=== PATIENT | female | born 1940 ===

== ENCOUNTER 2020-03-23 16:25 | Inpatient (IN) ==
[2020-03-23] MEDS ORDERED: HYDROmorphone 0.5 MG/0.5 ML SYRINGE IV ONE (17:42)
[2020-03-23 18:55] LABS: ABS Eosinophils 0.1 10^3/ul (0-0.6); ABS Lymphocytes 1.6 10^3/ul (1.0-4.8); ABS Monocytes 0.6 10^3/ul (0-0.8); Eosinophil % 0.8 %; Hematocrit 38 % (35-47); Hemoglobin 12.9 g/dL (12.0-16.0); Lymphocyte % 21.9 %; Mean Corpuscular HGB Conc 34 g/dL (31-36); Mean Corpuscular Hemoglobin 31 pg (27-31); Mean Corpuscular Volume 91 fL (80-97); Mean Platelet Volume 6.7 fL (7.4-10.4); Platelet Count 248 10^3/uL (150-450); Red Cell Distribution Width 16 % (10-15); White Blood Count 7.3 10^3/uL (3.5-10.8)
[2020-03-23 19:29] LABS: ALT 28 U/L (7-52); AST 23 U/L (13-39); Albumin 4.1 g/dL (3.2-5.2); Albumin/Globulin Ratio 1.3 (1-3); Alkaline Phosphatase 54 U/L (34-104); Anion Gap 9 mmol/L (2-11); BUN/Creatinine Ratio 18.3 (8-20); Blood Urea Nitrogen 22 mg/dL (6-24); C Reactive Protein < 1.00 mg/L (<8.01); CO2 Carbon Dioxide 24 mmol/L (22-32); Calcium 9.3 mg/dL (8.6-10.3); Chloride 98 mmol/L (101-111); EGFR African American 52.4 (>60); EGFR Non-African American 43.3 (>60); Globulin 3.1 g/dL (2-4); Glucose 104 mg/dL (70-100); Potassium 4.4 mmol/L (3.5-5.0); Sodium 131 mmol/L (135-145); Total Protein 7.2 g/dL (6.4-8.9)
[2020-03-23] MEDS ORDERED: Ondansetron 4 mg VIAL 2 MG/ML 2 ml VIAL IV PRN (21:38)
[2020-03-24] MEDS: oxyCODONE/Acetamin 5/325 mg TAB PO PRN ×2 (00:26→20:36)
[2020-03-24] MEDS: HYDROmorphone 0.5 MG/0.5 ML SYRINGE IV SLOW PU PRN ×3 (03:34→18:00)
[2020-03-24] MEDS ORDERED: Dextrose 50% Syringe 50 ml 25 GM/50 ML SYRINGE IV PUSH PRN (03:47)
[2020-03-24 10:02] LABS: Calcium 9.4 mg/dL (8.6-10.3); EGFR African American 56.8 (>60); EGFR Non-African American 46.9 (>60); Potassium 4.7 mmol/L (3.5-5.0)
[2020-03-24 10:37] LABS: Activated Partial Thrombo Time 31.4 seconds (26.0-38.0); INR 1.23 (0.82-1.09)
[2020-03-25] MEDS ORDERED: Ondansetron 4 mg VIAL 2 MG/ML 2 ml VIAL IV SCH
[2020-03-25] MEDS ORDERED: Dexamethasone IV 4 MG/ML VIAL 1 ml VIAL IV SLOW PU SCH
[2020-03-25] MEDS ORDERED: Lidocaine 2% PF 5 ML VIAL IV SCH
[2020-03-25] MEDS ORDERED: Acetaminophen IV 1 GM/100ML 100 ML IVPB SCH
[2020-03-25] MEDS ORDERED: Etomidate 20 mg/10 ml 2 MG/ML 10 ml VIAL IV SCH
[2020-03-25] MEDS ORDERED: EPHEDrine (Pressors) 50 MG/ML VIAL IV PUSH SCH
[2020-03-25] MEDS ORDERED: Propofol 10 MG/ML 50 ML BTL IV SCH
[2020-03-25] MEDS ORDERED: fentaNYL 250 mcg/5 ml 50 MCG/ML 5 ml VIAL (250 MCG) IV SCH
[2020-03-25] MEDS ORDERED: Rocuronium 50 mg VIAL 10 mg/ml 5 ml VIAL (50 mg) IV SCH
[2020-03-25] MEDS ORDERED: ceFAZolin 2 GM PREMIX 2 GM/50 ML BAG IVPB SCH
[2020-03-25] MEDS ORDERED: Remifentanil 2 MG VIAL IV SCH
[2020-03-25] MEDS ORDERED: Ketamine HCL 50 mg/ml 10 ml VIAL (500 MG) IV SCH
[2020-03-25] MEDS: HYDROmorphone 0.5 MG/0.5 ML SYRINGE IV SLOW PU PRN ×3 (01:50→11:21)
[2020-03-25] MEDS ORDERED: ceFAZolin 2 GM PREMIX 2 GM/50 ML BAG IVPB ONE (07:00)
[2020-03-25] MEDS ORDERED: ceFAZolin VIAL 2 GM in NS 0.9% 100 ml BAG 100 ML IVPB ONE (07:00)
[2020-03-25] MEDS ORDERED: Lidocaine 1% w EPI 1:200,000 SDV 30 ML VIAL ONE (12:31)
[2020-03-25] MEDS ORDERED: Vancomycin 1,000 MG VIAL ONE (12:31)
[2020-03-25] MEDS ORDERED: ceFAZolin VIAL VIAL ONE (12:31)
[2020-03-25] MEDS ORDERED: Bacitracin INJECTION 50,000 UNITS ONE (12:32)
[2020-03-25] MEDS ORDERED: Bacitracin OINTMENT TUBE ONE (12:32)
[2020-03-25] MEDS ORDERED: Bupivacaine 0.25% SDV 30 ML ONE (12:32)
[2020-03-25] MEDS ORDERED: Sterile Water for Inj 10 ML ONE ×2 (12:45→12:57)
[2020-03-25] MEDS ORDERED: Naloxone 0.4 mg VIAL 0.4 mg/ml 1 ml VIAL IV PRN (14:37)
[2020-03-25] MEDS ORDERED: DiMENhydriNATE IV 50 mg/ml 1 ml VIAL IV PUSH PRN (14:37)
[2020-03-25] MEDS ORDERED: Magnesium Hydroxide LIQ 30 ML UDC PO PRN (15:33)
[2020-03-25] MEDS ORDERED: Ondansetron 4 mg VIAL 2 MG/ML 2 ml VIAL IV PRN (15:33)
[2020-03-25] MEDS ORDERED: HYDROmorphone 1 MG/1 ML SYRINGE ONE (15:46)
[2020-03-25] MEDS: HYDROmorphone 1 MG/1 ML SYRINGE IV PRN ×3 (15:49→16:28)
[2020-03-25] MEDS ORDERED: Albuterol 2.5mg/3 ml (0.083%) NEB.SOLN INH PRN (15:56)
[2020-03-25] MEDS ORDERED: Labetalol IV 5 MG/ML 20 ml VIAL ONE (16:38)
[2020-03-25] MEDS: NS 0.9% 1000 ml BAG 1,000 ML IV SCH (17:44)
[2020-03-25] MEDS: Acetaminophen IV 1 GM/100ML 100 ML IVPB SCH ×2 (17:45→21:48)
[2020-03-25] MEDS: Orphenadrine Citrate INJ 30 mg/ml 2 ml VIAL (60 mg) IV SCH (19:08)
[2020-03-25 19:41] LABS: BUN/Creatinine Ratio 16.1 (8-20); Calcium 9.2 mg/dL (8.6-10.3); EGFR African American 53.5 (>60); EGFR Non-African American 44.2 (>60); Potassium 4.2 mmol/L (3.5-5.0)
[2020-03-26] MEDS: Orphenadrine Citrate INJ 30 mg/ml 2 ml VIAL (60 mg) IV SCH (03:51)
[2020-03-26] MEDS: NS 0.9% 1000 ml BAG 1,000 ML IV SCH (04:58)
[2020-03-26] MEDS: Acetaminophen IV 1 GM/100ML 100 ML IVPB SCH (05:20)
[2020-03-26] MEDS: Enoxaparin 40 MG/0.4 ML SYR SUBCUT SCH (05:20)
[2020-03-26 06:47] LABS: ABS Lymphocytes 0.6 10^3/ul (1.0-4.8); ABS Monocytes 0.4 10^3/ul (0-0.8); ABS Neutrophils 7.1 10^3/ul (1.5-7.7); Hematocrit 33 % (35-47); Hemoglobin 11.4 g/dL (12.0-16.0); Lymphocyte % 7.1 %; Mean Corpuscular HGB Conc 34 g/dL (31-36); Mean Corpuscular Hemoglobin 32 pg (27-31); Mean Corpuscular Volume 92 fL (80-97); Mean Platelet Volume 7.4 fL (7.4-10.4); Platelet Count 143 10^3/uL (150-450); Red Blood Count 3.63 10^6 /uL (3.70-4.87); Red Cell Distribution Width 15 % (10-15); White Blood Count 8.1 10^3/uL (3.5-10.8)
[2020-03-26 07:29] LABS: CO2 Carbon Dioxide 20 mmol/L (22-32); Calcium 8.3 mg/dL (8.6-10.3); Chloride 98 mmol/L (101-111); Sodium 128 mmol/L (135-145)
[2020-03-26 07:35] LABS: BUN/Creatinine Ratio 17.3 (8-20); Blood Urea Nitrogen 17 mg/dL (6-24); EGFR African American 66.2 (>60); EGFR Non-African American 54.7 (>60); Glucose 160 mg/dL (70-100)
[2020-03-26] MEDS: NS 0.9% w/ 20 Meq KCL 1000 ml 1,000 ML IV SCH (08:02)
[2020-03-26 08:10] LABS: Calcium 8.6 mg/dL (8.6-10.3); Magnesium 1.3 mg/dL (1.9-2.7)
[2020-03-26] MEDS: ceFAZolin 2 GM PREMIX 2 GM/50 ML BAG IVPB SCH ×2 (08:17→15:43)
[2020-03-26 08:23] LABS: Anion Gap 10 mmol/L (2-11)
[2020-03-26] MEDS ORDERED: Magnesium Sulf 4 GM/100 ML IV 4,000 MG/100 ML BAG IVPB ONE (09:00)
[2020-03-26] MEDS: Polyethylene Glycol 3350 17 GM PACKET PO SCH (09:44)
[2020-03-26] MEDS ORDERED: diPHENhydraMINE 25 mg TAB PO PRN (16:36)
[2020-03-26] MEDS: Lactulose 30 ml UDC PO SCH ×2 (17:14→22:30)
[2020-03-27] MEDS: Morphine 2 MG/ML SYRINGE IV PRN ×3 (00:37→09:43)
[2020-03-27] MEDS: ceFAZolin 2 GM PREMIX 2 GM/50 ML BAG IVPB SCH ×4 (00:40→23:32)
[2020-03-27] MEDS: NS 0.9% w/ 20 Meq KCL 1000 ml 1,000 ML IV SCH (00:43)
[2020-03-27] MEDS: Enoxaparin 40 MG/0.4 ML SYR SUBCUT SCH (06:06)
[2020-03-27 06:49] LABS: Potassium 4.5 mmol/L (3.5-5.0)
[2020-03-27] MEDS: Polyethylene Glycol 3350 17 GM PACKET PO SCH (08:49)
[2020-03-27] MEDS: Lactulose 30 ml UDC PO SCH ×3 (08:49→20:48)
[2020-03-27] MEDS ORDERED: Benzocaine/Menthol LOZ PO PRN (17:41)
[2020-03-28] MEDS: Enoxaparin 40 MG/0.4 ML SYR SUBCUT SCH (05:14)
[2020-03-28 06:44] LABS: ABS Lymphocytes 1.1 10^3/ul (1.0-4.8); ABS Monocytes 0.7 10^3/ul (0-0.8); ABS Neutrophils 5.7 10^3/ul (1.5-7.7); Eosinophil % 0.3 %; Hematocrit 34 % (35-47); Hemoglobin 11.7 g/dL (12.0-16.0); Lymphocyte % 15.1 %; Mean Corpuscular HGB Conc 34 g/dL (31-36); Mean Corpuscular Hemoglobin 31 pg (27-31); Mean Corpuscular Volume 92 fL (80-97); Mean Platelet Volume 7.4 fL (7.4-10.4); Platelet Count 185 10^3/uL (150-450); Red Blood Count 3.75 10^6 /uL (3.70-4.87); Red Cell Distribution Width 16 % (10-15); White Blood Count 7.6 10^3/uL (3.5-10.8)
[2020-03-28 07:09] LABS: Calcium 9.2 mg/dL (8.6-10.3); EGFR African American 71.3 (>60); EGFR Non-African American 58.9 (>60); Magnesium 1.7 mg/dL (1.9-2.7); Potassium 4.2 mmol/L (3.5-5.0)
[2020-03-28] MEDS ORDERED: Magnesium Sulfate IV 1GM/100ML 1 GM/100 ML BAG IV ONE (08:08)
[2020-03-28] MEDS: Lactulose 30 ml UDC PO SCH ×3 (08:58→20:23)
[2020-03-28] MEDS: Polyethylene Glycol 3350 17 GM PACKET PO SCH (10:17)
[2020-03-28] MEDS: CMCS:Rosuvastatin 20 mg TAB (NF) PO SCH (17:58)
[2020-03-29] MEDS: Enoxaparin 40 MG/0.4 ML SYR SUBCUT SCH (05:07)
[2020-03-29] MEDS: Polyethylene Glycol 3350 17 GM PACKET PO SCH (09:17)
[2020-03-29] MEDS: Lactulose 30 ml UDC PO SCH ×3 (09:18→22:01)
[2020-03-29] MEDS: CMCS:Rosuvastatin 20 mg TAB (NF) PO SCH (18:05)
[2020-03-30] MEDS: Enoxaparin 40 MG/0.4 ML SYR SUBCUT SCH (06:08)
[2020-03-30] MEDS: Polyethylene Glycol 3350 17 GM PACKET PO SCH (09:13)
[2020-03-30] MEDS: Lactulose 30 ml UDC PO SCH ×2 (09:13→14:20)
[2020-03-30 12:07] VITALS: BP 123/66
[2020-04-02] MEDS ORDERED: Al Hydrox/Mg Hydrox/Simet LIQ 30 ML UDC ONE (12:05)
== END 2020-03-30 15:25 | DRG 519 ==
LOC: ED 16:25 → MED 21:34 → SSU 03-25 17:22
PROVIDERS: ADMIT Internal Medicine; ATTEND Student in an Organized Health Care Education/Training Program